=== PATIENT | male | born 1960 | race Caucasian/White ===

== ENCOUNTER 2016-07-05 11:43 | Emergency (ER) | payer OTHER, MEDICARE ==
[~2016-07-05 11:43] MED LIST: ALLEGRA180 MG PO; ALLEGRA60 MG PO; AMITIZA24 MC1 PO; ATIVAN1 M1 PO; BENEFIBER1 EACH PO; BISACODYL10 M1 RC; BLISTEX MEDICATE6 GM TOP; CARBAMAZEPINE100 M2 PO; CIPRO500 M1 PO; CLOTRIMAZOLE AN1 CRE TOP; COLACE100 M1 PO; GABAPENTIN400 M2 PO; GAS RELIEF40 MG/0.2 PO; HYDROPHOR454 GM TOP; KLOR-CON M1010 ME1 PO; KLOR-CON M1010 MEQ PO; LIPITOR20 M2 PO; MIRALAX119 GM PO; MIRALAX17 G1 PO; MULTIPLE VITAM1 EAC2 PO; MURI-LUBE MINERA2 ML OTIC; PROS5 PO; SULFAMETHOXAZOL1 TA1 PO; TIZANIDINE HCL4 M1 PO; TOPAMAX100 M1 PO; TYLENOL325 MG PO; VITAMIN D50000 IU PO; ZEASORB POWDER71 GM TOP; [UNRECOGNIZED DRUG - OTHER] TOP
--- NOTE | 2016-07-05 12:16 | ED GI/GU/ABDOMINAL COMPLAINT ---
See Addendum History of Present Illness General Chief Complaint: Male Genitourinary Problems Stated Complaint: ? UTI Source: HOUSE DETECTIVE Exam Limitations: MR, NON VERBAL Vital Signs & Intake/Output Vital Signs & Intake/Output Vital Signs Date Time Temp Pulse Resp B/P Pulse O2 O2 Flow FiO2 Ox Delivery Rate 07/05 1318 101.4 86 16 125/86 98 Room Air 07/05 1233 Room Air 07/05 1154 99.3 84 18 107/67 99 Room Air Allergies Coded Allergies: grapefruit (NOTED TO BE AVOIDED DUE TO MEDS 10/11/15) Reconcile Medications Acetaminophen (Tylenol) 325 MG TAB 975 MG PO Q4H PRN PAIN/TEMP (Reported) Acetaminophen 325 MG TABLET 3 TAB PO Q8H PRN FEVER Allantoin/Camphor/Menthol/pH (Blistex 1%-0.5%-0.6%-0.5%) 1 OIN OIN 1 MALIK TOP BID PRN LIPS- FOR COLD SORES (Reported) Atorvastatin Calcium (Lipitor) 20 MG TABLET 1 TAB PO DAILY CHOLESTEROL ( Reported) Bisacodyl 10 MG SUP 1 SUPP UT PRN CONSTIPATION (Reported) Carbamazepine 100 MG CTB 5 TAB PO TID SEIZURES (Reported) Ciprofloxacin HCl (Cipro) 500 MG TABLET 1 TAB PO BID uti Ciprofloxacin HCl (Cipro) 500 MG TABLET 1 TAB PO BID uti CLOTRIMAZOLE/BETAMETHASONE DIP (Clotrimazole-Betamethasone Crm) 1 CRE CRE 1 MALIK TOP BID BILATERAL GROIN SKIN ERUPTIONS (Reported) Docusate Sodium 100 MG SGL 1 CAP PO DAILY STOOL SOFTENER (Reported) ERGOCALCIFEROL (VITAMIN D2) (Vitamin D2) 50,000 IU SGL 1 CAP PO QW low vitamin d take it weekly for 8 weeks and then stop Fexofenadine Hydrochloride (Lorena) 60 MG TAB 1 TAB PO BID ALLERGIES ( Reported) Finasteride (Propecia) 5 MG TAB 5 MG PO DAILY prostate Gabapentin 400 MG CAPSULE 1 CAP PO TID PAIN (Reported) Lorazepam (Ativan) 1 MG TAB 3 TAB PO AD PRN 90 MINS PRIOR TO MD APPT ( Reported) Lubiprostone (Amitiza) 24 MCG CAPSULE 1 CAP PO BID CONSTIPATION (Reported) Magnesium Citrate (Citrate Of Magnesia) 300 ML SOLUTION 296 ML PO ONCE CONSTIPATION USE ONCE FOR CONSTIPATION Mineral Oil (Muri-Lube Mineral Oil) 10 ML OIL 2 DROP OTIC Monday BOTH EARS (Reported) Multivitamin (Multiple Vitamins) 1 TAB TAB 1 TAB PO DAILY SUPPLEMENT ( Reported) PETROLATUM,WHITE (Hydrophor) 42% OIN 1 MALIK TOP BID BOTH FEET EXCEPT BETWEEN TOES (Reported) Polyethylene Glycol 3350 (Polyethylene Glycol (3350)) 17 GM/Dose PDS 17 GM PO DAILY GI (Reported) Polyethylene Glycol 3350 (Miralax) 119 GM POWDER 17 GM PO BID PRN constipation mix with water, juice, soda, coffee or tea Potassium Chloride (Klor-Con M10) [address] 1 TAB PO DAILY SUPPLEMENT ( Reported) Salicylic Acid/Sulfur (Sebex Shampoo) 118 ML SHA 1 MALIK TOP Monday SCALP (Reported) Simethicone 40 MG/0.6 ML MARIETTA 0.6 ML PO TID GAS (Reported) SULFAMETHOXAZOLE/TRIMETHOPRIM (Sulfamethoxazole-Tmp Ds Tablet) 1 TAB TAB 1 TAB PO BID UTI TALC/CELLULOS/CHLOROXY/ALDIOXA (Zeasorb Powder) 1 POW POW 1 MALIK TOP DAILY BI- LATERAL AXILLA & GROIN (Reported) TIZANIDINE HCL (Tizanidine HCl) 4 MG TABLET 1 TAB PO TID MUSCLE SPASM ( Reported) Topiramate 100 MG TABLET 3 TAB PO BID SEIZURES (Reported) Wheat Dextrin (Benefiber) 1 POW POW 1 TBSP PO DAILY SUPPLEMENT (Reported) Triage Note: 55 Y/O MALE BROUGHT IN BY DETENTION STAFF FOR EVAL OF ? UTI. STAFF STATE PT HAS NOT BEEN ACTING LIKE HIMSELF SINCE MONDAY; NOT INTERESTING IN EATING AND MORE LETHARGIC THAN USUAL. REPORT STRONG SMELL TO URINE. TEMP 99.3. Triage Nurses Notes Reviewed? yes HPI: 55-year-old male who has mental retardation and is nonverbal with history of urinary tract infections here with his caretakers with complaints of possible urinary tract infection again. He is irritable, decreased appetite, constipated over the last week, warm to touch, no documented fever no rash no vomiting. He usually gets straight cath from his home nurse as he is incontinent. He cannot provide any medical history (HARI WAHL,JEROME) Past History Travel History Traveled to [place] past 21 day No Medical History Any Pertinent Medical History? see below for history Neurological: MR seizure disorder EENT: NONE Cardiovascular: hyperlipidemia Respiratory: NONE Gastrointestinal: MILD DYSPHAGIA Hepatic: NONE Renal: nephrolithiasis Musculoskeletal: NONE Psychiatric: NONE Endocrine: NONE Blood Disorders: NONE Cancer(s): NONE INSURANCE DEFENSE ATTORNEY/Reproductive: HYPOSPADIUS Other Medical Hx: Mild BPH Surgical History Surgical History: non-contributory Psychosocial History Who do you live with W10 What is your primary language Turkish Tobacco Use: Never used Family History Hx Contributory? No (JEROME CROWE) Review of Systems Review of Systems Constitutional: Reports: see HPI. Comments Unable to determine, patient history of MR nonverbal, there is no rash no cough no vomiting (JEROME CROWE) Physical Exam Physical Exam General Appearance: well developed/nourished Gastrointestinal: normal bowel sounds, soft, non-tender, no organomegaly Comments: Well-developed well-nourished no apparent distress. HEENT: Atraumatic, extraocular motion intact Neck: Supple, no lymphadenopathy Back: Nontender Respiratory: No respiratory distress clear to auscultation bilateral. Heart: Regular rate and rhythm no murmur Extremities: No edema, full range of motion Neuro: At baseline per button tacker Psych: Baseline per button tacker Skin: Warm and dry, no rash on exposed skin Core Measures ACS in differential dx? No Severe Sepsis Present: No Septic Shock Present: No (JEROME CROWE) Progress Differential Diagnosis: AAA, AMI, appendicitis, biliary colic, bowel obstruction , colon cancer, cholecystitis, diverticulitis, epididymitis, esophageal varices, gastritis, hepatitis, hernia, hemorrhoids, ischemic bowel, inflamm bowel dis, Jaclyn-Steven tear, orchitis, pancreatitis, prostatitis, peptic ulcer, PUD/GERD, perforated viscous, pyelonephritis, SBO, STD, testicular torsion, ureterolithiasis, urinary retention, urethritis, UTI/pyelo Plan of Care: Orders Procedure Date/time Status Straight Cath 07/05 1209 Active CULTURE,URINE 07/05 1209 Active URINALYSIS 07/05 1209 Complete COMPREHENSIVE METABOLIC PANEL 07/05 1209 Complete CBC WITHOUT DIFFERENTIAL 07/05 1209 Complete Laboratory Tests 07/05/16 1225: Urinalysis LIGHT H, Urine Color ORANG H, Urine Clarity HAZY H, Urine pH 6.0, Ur Specific [place] 1.025, Urine Protein 30 H, Urine Ketones NEG, Urine Nitrite POS H, Urine Bilirubin NEG, Urine Urobilinogen 0.2, Ur Leukocyte Esterase TRACE H, Ur Microscopic SEDIMENT EXAMINED, Urine RBC RARE, Urine WBC 3-5 H, Ur Epithelial Cells FEW, Urine Mucus RARE, Urine Hemoglobin TRACE-INTACT H, Urine Glucose NEG 07/05/16 1220: Anion Gap 13, Estimated GFR > 60, BUN/Creatinine Ratio 14.3, Glucose 97, Calcium 9.0, Total Bilirubin 0.4, AST 46, ALT 54, Alkaline Phosphatase 71, Total Protein 7.5, Albumin 3.9, Globulin 3.6, Albumin/Globulin Ratio 1.1, CBC w Diff NO MAN DIFF REQ, RBC 4.25 L, MCV 92.8, MCH 31.4 H, RDW 13.1, MPV 8.4, Gran % 54.0, Lymphocytes % 24.9, Monocytes % 17.4 H, Eosinophils % 3.2, Basophils % 0.5, Absolute Granulocytes 3.1, Absolute Lymphocytes 1.4, Absolute Monocytes 1.0 H, Absolute Eosinophils 0.2, Absolute Basophils 0, PUBS MCHC 33.8 Microbiology 07/05 1225 URINE ROUT: Urine Culture - RECD Initial ED EKG: none Comments: Patient noted to have UTI on straight cath specimen, urine culture sent, otherwise labs are unremarkable, no signs of sepsis He was given Tylenol for fever and Cipro 500 mg by mouth for UTI. He will also be treated with magnesium citrate for constipation which is likely playing some role in causing his UTI. His previous urine cultures have shown Escherichia coli which is pansensitive. His caretakers will be taking him home, returning with any signs of worsening infection (HARI WAHL,JEROME) Departure Departure Disposition: HOME OR SELF CARE Condition: Stable Clinical Impression Primary Impression: UTI (urinary tract infection) Qualifiers: Urinary tract infection type: acute cystitis Hematuria presence: without hematuria Qualified Code: N30.00 - Acute cystitis without hematuria Secondary Impressions: Constipation Qualifiers: Constipation type: unspecified constipation type Qualified Code: K59.00 - Constipation, unspecified Referrals: ZACHARY RAMIREZ MD (PCP/Family) Referred to [facility] as new patient No Additional Instructions: Take antibiotics as directed. Take Tylenol for fever and pain. Return with worsening fever, flulike illness, nausea vomiting or back pain. Return if you are unable to keep fluids down. Use the magnesium citrate, drinking 1 bottle one time for constipation Departure Forms: Customer Survey General Discharge Information Prescriptions: Current Visit Scripts Ciprofloxacin HCl (Cipro) 1 TAB PO BID #13 TAB Acetaminophen 3 TAB PO Q8H PRN FEVER #30 Magnesium Citrate (Citrate Of Magnesia) 296 ML PO ONCE #296 ML USE ONCE FOR CONSTIPATION (HARI WAHL,JEROME) PA/REMOTE SENSING TECHNOLOGIST Co-Sign Statement Statement: ED Attending supervision documentation- [] I saw and evaluated the patient. I have also reviewed all the pertinent lab results and diagnostic results. I agree with the findings and the plan of care as documented in the PA's/REMOTE SENSING TECHNOLOGIST's documentation. x I have reviewed the ED Record and agree with the PA's/REMOTE SENSING TECHNOLOGIST's documentation. [] Additions or exceptions (if any) to the PAs/REMOTE SENSING TECHNOLOGIST's note and plan are summarized below: [] (SEBASTIAN VAZQUEZ,THEO)
[2016-07-05 12:37] LABS: ABSOLUTE BASOPHIL COUNT 0 /CUMM (0.0-0.2); ABSOLUTE EOSINOPHIL COUNT 0.2 /CUMM (0.0-0.7); ABSOLUTE GRANULOCYTE CT 3.1 /CUMM (1.4-6.5); ABSOLUTE LYMPH COUNT 1.4 /CUMM (1.2-3.4); BASOPHIL % 0.5 % (0.0-2.0); EOSINOPHIL % 3.2 % (0-5); HEMATOCRIT 39.5 % (42-52); MEAN CORPUSCULAR HGB 31.4 PG (27.0-31.0); MEAN CORPUSCULAR HGB CONC 33.8 G/DL (33.0-37.0); MEAN CORPUSCULAR VOLUME 92.8 FL (80.0-94.0); MEAN PLATELET VOLUME 8.4 FL (7.4-10.4); PLATELET COUNT 239 /CUMM (130-400); RBC DISTRIBUTION WIDTH 13.1 % (11.5-14.5); RED BLOOD CELL CT 4.25 /CUMM (4.70-6.10); WHITE BLOOD CELL COUNT 5.7 /CUMM (4.8-10.8)
[2016-07-05 13:18] VITALS: BP 125/86
[2016-07-05] MEDS ORDERED: CIPRO500 M1 PO (13:30)
[2016-07-05] MEDS ORDERED: CITRATE OF MAG300 ML PO (13:30)
[2016-07-05] MEDS ORDERED: ACETAMINOPHEN325 M2 PO (13:30)
== END 2016-07-05 13:40 ==
LOC: ERH 11:43
PROVIDERS: Physician Assistant Surgical
DX: N39.0 Urinary tract infection, site not specified (principal); K59.00 Constipation, unspecified
CPT/HCPCS: 81001; 87086

== ENCOUNTER 2016-10-30 13:30 | Emergency (ER) | payer OTHER, MEDICARE ==
[~2016-10-30 13:30] MED LIST changes: +ACETAMINOPHEN325 M2 PO; +CITRATE OF MAG300 ML PO
--- NOTE | 2016-10-30 14:05 | ED GI/GU/ABDOMINAL COMPLAINT ---
History of Present Illness General Chief Complaint: Male Genitourinary Problems Stated Complaint: ?UTI Source: friend (hearing healthcare practitioner) Exam Limitations: physical impairment Vital Signs & Intake/Output Vital Signs & Intake/Output Vital Signs Date Time Temp Pulse Resp B/P B/P Pulse O2 O2 Flow FiO2 Mean Ox Delivery Rate 10/30 1736 98.8 76 18 112/74 98 Room Air Room Air 10/30 1622 98.4 79 18 116/77 94 Room Air 10/30 1336 98.4 78 18 112/75 94 Room Air Allergies Coded Allergies: grapefruit (NOTED TO BE AVOIDED DUE TO MEDS 10/11/15) Reconcile Medications Acetaminophen 325 MG TABLET 3 TAB PO Q8H PRN FEVER Atorvastatin Calcium (Lipitor) 20 MG TABLET 1 TAB PO DAILY CHOLESTEROL ( Reported) Bisacodyl 10 MG SUPP.RECT 1 SUP RC DAILY PRN CONSTIPATION (Reported) Carbamazepine 100 MG TAB.CHEW 5 TAB PO TID SEIZURES (Reported) Cholecalciferol (Vitamin D3) (Vitamin D3) 1,000 UNIT CAPSULE 1 CAP PO DAILY VITAMIN SUPPORT (Reported) Clobazam (ONFI) 10 MG TABLET 1 TAB PO BID UNKNOWN (Reported) Docusate Sodium (Colace) 100 MG CAPSULE 1 CAP PO DAILY STOOL SOFTENER ( Reported) Finasteride 5 MG TABLET 1 TAB PO DAILY PROSTATE (Reported) Gabapentin 400 MG CAPSULE 1 CAP PO TID PAIN (Reported) Levocetirizine Dihydrochloride 5 MG TABLET 1 TAB PO DAILY ALLERGIES (Reported ) Lorazepam (Ativan) 1 MG TABLET 3 TAB PO DAILY PRN DENTAL APPTS (Reported) Lubiprostone (Amitiza) 24 MCG CAPSULE 1 CAP PO BID CONSTIPATION (Reported) Menthol/Camphor/Dimeth/Phenol (Blistex Medicated Lip Ointment) 0.6 %-0.5 %-1.1 % -0.5 % OINT...G. 1 MALIK TOP BIDP PRN COLD SORES (Reported) Mineral Oil (Muri-Lube Mineral Oil) 2 ML VIAL 2 DROP OTIC Monday EARS (Reported) Multivitamin (Multiple Vitamins) 1 EACH TABLET 1 TAB PO DAILY VITAMIN SUPPORT (Reported) Petrolatum,White (Hydrophor) 42 % OINT...G. 1 MALIK TOP BID FEET (Reported) Polyethylene Glycol 3350 (Miralax) 17 GRAM POWD.PACK 1 PAC PO 1600 CONSTIPATION (Reported) dissolve in water Potassium Chloride (Klor-Con M10) 10 MEQ TAB.ER.PRT 1 TAB PO DAILY SUPPLEMENT (Reported) Simethicone (Gas Relief) 40 MG/0.6 ML DROPS.SUSP 0.6 ML PO TID GAS (Reported) Sulfamethoxazole/Trimethoprim (Bactrim Ds Tablet) 800 MG-160 MG TABLET 1 TAB PO BID uti Talc/Cellulos/Chloroxy/Aldioxa (Zeasorb Powder) 71 GM POWDER 1 MALIK TOP DAILY GROIN (Reported) Tizanidine HCl 4 MG TABLET 1 TAB PO TID MUSCLE SPASMS (Reported) Topiramate (Topamax) 100 MG TABLET 3 TAB PO TID SEIZURES (Reported) Wheat Dextrin (Benefiber) 3 GRAM/3.5 GRAM POWD.PACK 1 TBSP PO DAILY SUPPLEMENT (Reported) Triage Note: 56 YEAR OLD MALE FROM LONGTERM WITH STAFF, PER STAFF PT HAS NOT BEEN ACTING RIGHT, PT HAS HISTORY OF FREQUENT UTI'S. PT WEARS BRIEF AND STAFF STATES THAT HE HAS NOT HAD TO HAVE BRIEF CHANGED. PT IS NON VERBAL AT BASELINE AND NO AMBULATORY.AFEBRILE Triage Nurses Notes Reviewed? yes Onset: Abrupt Duration: day(s): (2), constant, continues in ED Timing: recent history Radiation: no radiation No Modifying Factors: none HPI: 56-year-old male brought into emergency room for evaluation of decreased appetite and some urinary incontinence. Patient has been not acting his normal self. He is nonverbal. History is very limited. There is been no documented fever or vomiting. He has not been complaining of pain in his own way to anyone. Caregiver denies any other associated symptoms stated before history is very limited. (NIC CROOKS) Past History Travel History Traveled to [place] past 21 day No Medical History Any Pertinent Medical History? see below for history Neurological: MR seizure disorder EENT: NONE Cardiovascular: hyperlipidemia Respiratory: NONE Gastrointestinal: MILD DYSPHAGIA Hepatic: NONE Renal: nephrolithiasis, urinary incontinence, UTI'S Musculoskeletal: NONE Psychiatric: NONE Endocrine: NONE Blood Disorders: NONE Cancer(s): NONE DISPATCHER CHIEF OIL/Reproductive: HYPOSPADIUS Other Medical Hx: Mild BPH Surgical History Surgical History: non-contributory Psychosocial History Who do you live with W10 What is your primary language Zimbabwean Tobacco Use: Never used ETOH Use: denies use Illicit Drug Use: denies illicit drug use Family History Hx Contributory? No (NIC CROOKS) Review of Systems Review of Systems Constitutional: Reports: see HPI. EENTM: Reports: no symptoms. Respiratory: Reports: no symptoms. Cardiovascular: Reports: no symptoms. GI: Reports: no symptoms. Genitourinary: Reports: see HPI. Musculoskeletal: Reports: no symptoms. Skin: Reports: no symptoms. Neurological/Psychological: Reports: no symptoms. Hematologic/Endocrine: Reports: no symptoms. Immunologic/Allergic: Reports: no symptoms. All Other Systems: Reviewed and Negative (NIC CROOKS) Physical Exam Physical Exam General Appearance: alert, awake Head: atraumatic Eyes: Bilateral: normal appearance. Ears, Nose, Throat, Mouth: hearing grossly normal Neck: normal inspection Respiratory: normal breath sounds, no respiratory distress Cardiovascular: regular rate/rhythm Gastrointestinal: soft, non-tender Male Genitals: urinary incontinence, no blood, Back: normal inspection Extremities: normal inspection Neurologic/Psych: awake, alert Skin: intact, normal color Core Measures ACS in differential dx? No Severe Sepsis Present: No Septic Shock Present: No (NIC CROOKS) Progress Differential Diagnosis: pancreatitis, prostatitis, peptic ulcer, pyelonephritis, SBO, ureterolithiasis, urinary retention, urethritis, UTI/pyelo Plan of Care: Orders Procedure Date/time Status LACTIC ACID 10/30 1709 Complete Add-on Test (ER Only) 10/30 1540 Active LACTIC ACID 10/30 1409 Complete COMPREHENSIVE METABOLIC PANEL 10/30 1409 Complete CBC WITHOUT DIFFERENTIAL 10/30 1409 Complete CULTURE,URINE 10/30 1354 Active URINALYSIS 10/30 1338 Complete Laboratory Tests 10/30/16 1421: Lactic Acid 2.0 10/30/16 1421: Anion Gap 14, Estimated GFR > 60, BUN/Creatinine Ratio 23.3, Glucose 138 H, Lactic Acid 2.0, Calcium 9.4, Total Bilirubin 0.6, AST 39, ALT 53, Alkaline Phosphatase 70, Total Protein 8.1, Albumin 4.3, Globulin 3.8, Albumin/Globulin Ratio 1.1, CBC w Diff NO MAN DIFF REQ, RBC 4.59 L, MCV 94.2 H, MCH 31.4 H, RDW 13.6, MPV 8.2, Gran % 81.5 H, Lymphocytes % 12.6 L, Monocytes % 4.8, Eosinophils % 1.0, Basophils % 0.1, Absolute Granulocytes 9.4 H, Absolute Lymphocytes 1.5, Absolute Monocytes 0.6, Absolute Eosinophils 0.1, Absolute Basophils 0, PUBS MCHC 33.3 10/30/16 1350: Urine Color YEL, Urine Clarity HAZY H, Urine pH 6.0, Ur Specific [place] 1.020, Urine Protein TRACE H, Urine Ketones NEG, Urine Nitrite POS H, Urine Bilirubin NEG, Urine Urobilinogen 0.2, Ur Leukocyte Esterase SMALL H, Ur Microscopic SEDIMENT EXAMINED, Urine RBC 1-3, Urine WBC 10-15 H, Ur Epithelial Cells FEW, Urine Bacteria MANY H, Urine Hemoglobin TRACE-INTACT H, Urine Glucose NEG Microbiology 10/30 1350 URINE ROUT: Urine Culture - RECD Initial ED EKG: none (ELOISE WAHL,NIC) Departure Departure Disposition: HOME OR SELF CARE Condition: Stable Clinical Impression Primary Impression: UTI (urinary tract infection) Referrals: ZACHARY RAMIREZ MD (PCP/Family) Additional Instructions: Take Bactrim as prescribed. Rest. Drink plenty of fluids. Return if any fever vomiting or any other concerns worsening symptoms. Please go over all results of today's visit with your primary care doctor. Contact your primary care doctor to let them know you were here in the emergency room. There may be nonspecific findings which may not be related to your visit today here in the emergency room but may require further evaluation and chronic monitoring by your primary care doctor. If you had a laceration today the chance of foreign body always remains. You should follow-up with your primary care doctor for recheck in 3-5 days for a wound check. If you had an x-ray done there is a chance that a fracture could have been missed on initial read and you should follow-up with your primary care doctor for repeat x-rays if symptoms persist. If your blood pressure was elevated here in the emergency room please have rechecked by her primary care doctor within the next 48 hours by your primary care doctor. If you were prescribed a narcotic here in the emergency room or any type of controlled substances you're not allowed to drive while taking this medication or operate any type of heavy machinery. Narcotics can make you feel lightheaded dizziness nausea and can cause constipation. You may need to pickle sorter a stool softener. Thank you for choosing [facility] emergency room. Please return to the emergency room immediately if you have any other concerns worsening of symptoms. Departure Forms: Customer Survey General Discharge Information Prescriptions: Current Visit Scripts Sulfamethoxazole/Trimethoprim (Bactrim Ds Tablet) 1 TAB PO BID #14 TAB Comments 10/30/2016 3:40:38 PM Patient clinically looks well. Nontoxic-appearing. No apparent distress. Has been taking his pills according to the caregiver so he should be able take oral antibiotics. Patient was given a shot of Rocephin. He is afebrile. Small white count. Does not appear to be septic appearing. (NIC CROOKS) PA/BUILDING WRECKER Co-Sign Statement Statement: ED Attending supervision documentation- [] I saw and evaluated the patient. I have also reviewed all the pertinent lab results and diagnostic results. I agree with the findings and the plan of care as documented in the PA's/BUILDING WRECKER's documentation. [X] I have reviewed the ED Record and agree with the PA's/BUILDING WRECKER's documentation. [] Additions or exceptions (if any) to the PAs/BUILDING WRECKER's note and plan are summarized below: [] (SHIMA VAZQUEZ,JF Bonilla)
[2016-10-30] MEDS ORDERED: FINASTERIDE5 M1 PO (14:14)
[2016-10-30] MEDS ORDERED: LEVOCETIRIZINE D5 M1 PO (14:15)
[2016-10-30] MEDS ORDERED: VITAMIN D31000 UNI1 PO (14:16)
[2016-10-30] MEDS ORDERED: ONFI10 M1 PO (14:20)
[2016-10-30 14:37] LABS: ABSOLUTE BASOPHIL COUNT 0 /CUMM (0.0-0.2); ABSOLUTE EOSINOPHIL COUNT 0.1 /CUMM (0.0-0.7); ABSOLUTE GRANULOCYTE CT 9.4 /CUMM (1.4-6.5); ABSOLUTE LYMPH COUNT 1.5 /CUMM (1.2-3.4); ABSOLUTE MONOCYTE COUNT 0.6 /CUMM (0.10-0.60); BASOPHIL % 0.1 % (0.0-2.0); HEMATOCRIT 43.2 % (42-52); MEAN CORPUSCULAR HGB 31.4 PG (27.0-31.0); MEAN CORPUSCULAR HGB CONC 33.3 G/DL (33.0-37.0); MEAN CORPUSCULAR VOLUME 94.2 FL (80.0-94.0); MEAN PLATELET VOLUME 8.2 FL (7.4-10.4); PLATELET COUNT 225 /CUMM (130-400); RBC DISTRIBUTION WIDTH 13.6 % (11.5-14.5); RED BLOOD CELL CT 4.59 /CUMM (4.70-6.10); WHITE BLOOD CELL COUNT 11.5 /CUMM (4.8-10.8)
[2016-10-30 14:38] LABS: GRANULOCYTE % 81.5 % (42.2-75.2)
[2016-10-30] MEDS ORDERED: BACTRIM DS TAB1 EACH PO (15:16)
[2016-10-30 17:36] VITALS: BP 112/74
== END 2016-10-30 17:37 ==
LOC: ERH 13:30
PROVIDERS: Physician Assistant Medical
DX: N39.0 Urinary tract infection, site not specified (principal)
CPT/HCPCS: 81001; 87086; 96372; J0696

== ENCOUNTER 2017-06-28 17:23 | Emergency (ER) | payer OTHER, MEDICARE ==
[~2017-06-28] VITALS: Ht 167.6 cm; Wt 69.9 kg
[~2017-06-28 17:23] MED LIST changes: +BACTRIM DS TAB1 EACH PO; +FINASTERIDE5 M1 PO; +LEVOCETIRIZINE D5 M1 PO; +ONFI10 M1 PO; +VITAMIN D31000 UNI1 PO
--- NOTE | 2017-06-28 20:54 | ED GI/GU/ABDOMINAL COMPLAINT ---
History of Present Illness General Chief Complaint: Abdominal Pain/Flank Pain Stated Complaint: ABD. 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 Source: [facility] STAFF Exam Limitations: unable to give history Vital Signs & Intake/Output Vital Signs & Intake/Output Vital Signs Date Time Temp Pulse Resp B/P B/P Pulse O2 O2 Flow FiO2 Mean Ox Delivery Rate 06/28 2116 Room Air 06/28 2110 97.9 63 20 120/77 97 Room Air 06/28 1734 97.4 68 15 114/78 98 Room Air Room Air Allergies Coded Allergies: grapefruit (NOTED TO BE AVOIDED DUE TO MEDS 06/28/17) Reconcile Medications Acetaminophen 325 MG TABLET 3 TAB PO Q8H PRN FEVER Atorvastatin Calcium (Lipitor) 20 MG TABLET 1 TAB PO DAILY CHOLESTEROL ( Reported) Bisacodyl 10 MG SUPP.RECT 1 SUP RC DAILY PRN CONSTIPATION (Reported) Carbamazepine 100 MG TAB.CHEW 5 TAB PO TID SEIZURES (Reported) Cholecalciferol (Vitamin D3) (Vitamin D3) 1,000 UNIT CAPSULE 1 CAP PO DAILY VITAMIN SUPPORT (Reported) Docusate Sodium (Colace) 100 MG CAPSULE 1 CAP PO DAILY STOOL SOFTENER ( Reported) Finasteride 5 MG TABLET 1 TAB PO DAILY PROSTATE (Reported) Gabapentin 400 MG CAPSULE 1 CAP PO TID PAIN (Reported) Levocetirizine Dihydrochloride 5 MG TABLET 1 TAB PO DAILY ALLERGIES (Reported ) LORazepam (Ativan) 1 MG TABLET 3 TAB PO DAILY PRN DENTAL APPTS (Reported) Lubiprostone (Amitiza) 24 MCG CAPSULE 1 CAP PO BID CONSTIPATION (Reported) Menthol/Camphor/Dimeth/Phenol (Blistex Medicated Lip Ointment) 0.6 %-0.5 %-1.1 % -0.5 % OINT...G. 1 MALIK TOP BIDP PRN COLD SORES (Reported) Mineral Oil (Muri-Lube Mineral Oil) 2 ML VIAL 2 DROP OTIC Monday EARS (Reported) Multivitamin (Multiple Vitamins) 1 EACH TABLET 1 TAB PO DAILY VITAMIN SUPPORT (Reported) Petrolatum,White (Hydrophor) 42 % OINT...G. 1 MALIK TOP BID FEET (Reported) Potassium Chloride (Klor-Con M10) 10 MEQ TAB.ER.PRT 1 TAB PO DAILY SUPPLEMENT (Reported) Simethicone (Gas Relief) 40 MG/0.6 ML DROPS.SUSP 0.6 ML PO TID GAS (Reported) Talc/Cellulos/Chloroxy/Aldioxa (Zeasorb Powder) 71 GM POWDER 1 MALIK TOP DAILY GROIN (Reported) Tizanidine HCl 4 MG TABLET 1 TAB PO TID MUSCLE SPASMS (Reported) Topiramate (Topamax) 100 MG TABLET 2 TAB PO DAILY seizure (Reported) Wheat Dextrin (Benefiber) 3 GRAM/3.5 GRAM POWD.PACK 1 TBSP PO DAILY SUPPLEMENT (Reported) Triage Note: PT TO ED FROM [facility] WITH STAFF TO BE EVALUATED FOR NO BM IN 2 DAYS. PT WAS ADMITTED TO HOSPITAL ON Jun FOR "TWISTED BOWELS" DISCHARGED ON THE . HAD 2 BM'S ON MONDAY AND MONDAY BUT NOTHING SINCE. PT DOES NOT SPEAK, BUT PER STAFF, HAS NOT INDICATED ANY SIGNS OF ACUTE DISTRESS/PAIN. Triage Nurses Notes Reviewed? yes HPI: Patient presents for evaluation of possible bowel obstruction. Patient was recently admitted to the hospital and had a colonoscopy for a "twisted bowel". He seemed to be doing well after but over the past 2 days has not had a bowel movement. There is been no apparent vomiting. The patient overall appears comfortable although he is unable to provide history given his past medical history. The patient was evaluated by the [facility] nurse and was sent to the emergency department for evaluation. Past History Travel History Traveled to [place] past 21 day No Medical History Any Pertinent Medical History? 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 No Review of Systems Review of Systems Constitutional: Reports: no symptoms. EENTM: Reports: no symptoms. Respiratory: Reports: no symptoms. Cardiovascular: Reports: no symptoms. GI: Reports: see HPI. Genitourinary: Reports: no symptoms. Musculoskeletal: Reports: no symptoms. Skin: Reports: no symptoms. Neurological/Psychological: Reports: no symptoms. Hematologic/Endocrine: Reports: no symptoms. Immunologic/Allergic: Reports: no symptoms. All Other Systems: Reviewed and Negative Physical Exam Physical Exam Gastrointestinal: SEE BELOW Comments: Gen.: Well-nourished, no acute respiratory distress. Head: Normocephalic, atraumatic. Eyes: Normal inspection bilaterally Ears: Normal inspection bilaterally Nose: Normal inspection Throat/mouth : Moist mucosa Neck: Supple, full range of motion, no goiter Lungs: Quiet respirations Abdomen: Softly distended with moderate tympany, normal bowel sounds Back: Normal range of motion Extremities: Contracted, warm and well perfused Neurologic: Grossly nonfocal exam Skin: warm and dry Psychiatric: Unable to assess Core Measures ACS in differential dx? No Sepsis Present: No Sepsis Focused Exam Completed? No Progress Differential Diagnosis: VOLVULUS, INTUSSUSCEPTION, OBSTRUCTION, CONSTIPATION Plan of Care: Orders Procedure Date/time Status [id number] VIEWS 06/[address] ABD & PELVIS W/O IV CONTRAS 06/28 1940 Active Diagnostic Imaging: Discussed w/RAD: CT Scan. Radiology Impression: PATIENT: JF TREADWELL PRESENT AGE: 56 PATIENT ACCOUNT NO: [id number] : 58 LOCATION: [facility] ORDERING PHYSICIAN: Darren WAHL SERVICE DATE: 06/28/17 EXAM TYPE: CAT - CT ABD & PELVIS W/O IV CONTRAS EXAMINATION: CT ABDOMEN AND PELVIS WITHOUT CONTRAST CLINICAL INFORMATION: History of volvulus last week. Abdominal pain. Constipation. COMPARISON: CT abdomen pelvis 06/19/2017. Plain film abdomen 06/21 TECHNIQUE: Multidetector volumetric imaging was performed from the superior aspect of the liver through the pubic symphysis. Sagittal and coronal reformatted images were obtained on the technologist's workstation. DLP: 383.86 mGy-cm FINDINGS: LUNG BASES: Asymmetric elevation of right diaphragm compared to left. Lung bases are clear. No pleural effusion. LIVER, GALLBLADDER, AND BILIARY TREE: The liver is normal in size, shape, and attenuation. No focal hepatic lesion or biliary ductal dilatation is present. The gallbladder is unremarkable with no evidence of radiopaque gallstones, gallbladder wall thickening, or obvious pericholecystic inflammatory changes. PANCREAS: Unremarkable. SPLEEN: Unremarkable. ADRENAL GLANDS: Unremarkable. KIDNEYS AND URETERS: The kidneys are normal in size, shape, and attenuation. No hydronephrosis, hydroureter, or calculi seen. No perinephric stranding. BLADDER: Unremarkable. GASTROINTESTINAL TRACT: The volvulus of the sigmoid colon seen on the CAT scan 06/19/2017 has resolved. No mesenteric twist now present. There is however continued looping of the sigmoid into the right upper quadrant underneath the diaphragm due to a redundant colon. There is a large volume of stool in the right colon, transverse colon and descending colon. As the descending colon loops up into the right upper quadrant the volume of stool diminishes and there is just mostly air in the redundant sigmoid colon. There is no bowel wall thickening or edema. The appendix is normal. The small bowel loops are normal. ABDOMINAL WALL: No significant hernia is appreciated. LYMPH NODES: Normal. VASCULAR: Unremarkable. PELVIC VISCERA: Unremarkable. OSSEOUS STRUCTURES: Unremarkable. IMPRESSION: The sigmoid volvulus present on the prior CAT scan of 06/19/2017 has resolved. The sigmoid colon though is redundant loops into the right upper quadrant. Large volume of stool present in the right colon. DICTATED BY: Martín Mart MD DATE/ TIME DICTATED:06/28/172052 MIDDLE STITCHER:SRUTHI DATE/TIME TRANSCRIBED: 06/28/172052 CONFIDENTIAL, DO NOT COPY WITHOUT APPROPRIATE AUTHORIZATION. < Electronically signed in Other Vendor System> SIGNED BY: Martín Mart MD 2105 Initial ED EKG: none Departure Departure Disposition: HOME OR SELF CARE Condition: Stable Clinical Impression Primary Impression: Constipation Qualifiers: Constipation type: unspecified constipation type Qualified Code: K59.00 - Constipation, unspecified Referrals: Chris Purcell MD (PCP/Family) Additional Instructions: Increase fluid intake. MiraLAX as needed for constipation. Follow-up with your primary care physician on Monday if you're not having regular bowel movements. Return if any concerns or sudden worsening. Please note that there might be incidental findings in your evaluation that are unrelated to the current emergency department visit. Please notify your primary care doctor about this emergency department visit in order to obtain and review all of the testing performed so that these incidental findings can be monitored as needed. If you had an x-ray performed, please understand that some fractures may not be seen on the initial set of x-rays. If your symptoms persist you might need a repeat set of x-rays to check for such a fracture. If you had a laceration evaluated, please understand that foreign bodies such as glass or wood may not be visible to the naked eye or on plain x-rays. If the wound becomes red, swollen, increasingly more painful or if there is any drainage from the wound, please have it reevaluated by a physician for the possibility of a retained foreign body. If you're unable to follow up as outlined in the discharge instructions please return to the emergency department. Thank you for choosing the [facility] for your care. It was a pleasure to serve you today. Brandin Walker M.D. [facility] Departure Forms: Customer Survey General Discharge Information
--- NOTE | 2017-06-28 21:06 | CT SCAN REPORT ---
EXAMINATION: CT ABDOMEN AND PELVIS WITHOUT CONTRAST CLINICAL INFORMATION: History of volvulus last week. Abdominal pain. Constipation. COMPARISON: CT abdomen pelvis 06/19/2017. Plain film abdomen 06/21/2017 TECHNIQUE: Multidetector volumetric imaging was performed from the superior aspect of the liver through the pubic symphysis. Sagittal and coronal reformatted images were obtained on the technologist's workstation. DLP: 383.86 mGy-cm FINDINGS: LUNG BASES: Asymmetric elevation of right diaphragm compared to left. Lung bases are clear. No pleural effusion. LIVER, GALLBLADDER, AND BILIARY TREE: The liver is normal in size, shape, and attenuation. No focal hepatic lesion or biliary ductal dilatation is present. The gallbladder is unremarkable with no evidence of radiopaque gallstones, gallbladder wall thickening, or obvious pericholecystic inflammatory changes. PANCREAS: Unremarkable. SPLEEN: Unremarkable. ADRENAL GLANDS: Unremarkable. KIDNEYS AND URETERS: The kidneys are normal in size, shape, and attenuation. No hydronephrosis, hydroureter, or calculi seen. No perinephric stranding. BLADDER: Unremarkable. GASTROINTESTINAL TRACT: The volvulus of the sigmoid colon seen on the CAT scan 06/19/2017 has resolved. No mesenteric twist now present. There is however continued looping of the sigmoid into the right upper quadrant underneath the diaphragm due to a redundant colon. There is a large volume of stool in the right colon, transverse colon and descending colon. As the descending colon loops up into the right upper quadrant the volume of stool diminishes and there is just mostly air in the redundant sigmoid colon. There is no bowel wall thickening or edema. The appendix is normal. The small bowel loops are normal. ABDOMINAL WALL: No significant hernia is appreciated. LYMPH NODES: Normal. VASCULAR: Unremarkable. PELVIC VISCERA: Unremarkable. OSSEOUS STRUCTURES: Unremarkable. IMPRESSION: The sigmoid volvulus present on the prior CAT scan of 06/19/2017 has resolved. The sigmoid colon though is redundant loops into the right upper quadrant. Large volume of stool present in the right colon.
[2017-06-28 22:23] VITALS: BP 121/83
== END 2017-06-28 22:40 ==
LOC: ERH 17:23
DX: K59.00 Constipation, unspecified (principal)
CPT/HCPCS: 74176